=== PATIENT | female | born 1980 | race Native Hawaiian/Other Pacific Islander ===

== ENCOUNTER 2018-05-31 17:04 | Outpatient (CLI) | payer OTHER | END 2018-05-31 17:07 | disposition short-term general hospital (02) | LOC: AMB 17:04 | DX: G40.89 Other seizures (principal) | CPT/HCPCS: A0425; A0429 ==

== ENCOUNTER 2018-05-31 17:10 | Emergency (ER) | payer OTHER ==
[~2018-05-31] VITALS: Ht 154.9 cm; Wt 54.4 kg
[2018-05-31 17:36] VITALS: BP 100/60; TEMP 98.2
== END 2018-05-31 17:40 ==
LOC: ED 17:10
DX: F41.0 Panic disorder [episodic paroxysmal anxiety] (principal)
CPT/HCPCS: 99282